=== PATIENT | female | born 1990 | race Caucasian/White ===

== ENCOUNTER 2022-08-02 10:01 | Emergency (ER) | payer OTHER ==
[2022-08-02 10:08] VITALS: RESP 18
--- NOTE | 2022-08-02 10:40 | ED ---
General Adult HPI - General Chief complaint: Neuro Symptoms/Deficit Stated complaint: AMS,Numbness Time Seen by Provider: 08/02/22 10:15 Source: patient, RN notes reviewed, old records reviewed Mode of arrival: EMS Limitations: altered mental status - History of Present Illness Initial comments: This is a 32-year-old female presents emergency department stating that while she was at work she had some tingling on the left side of her tongue and then in her 2 fingers on her left hand and then it spread to her whole hand went up her arm into her neck and lasted about a total of a half an hour she states the tingling on the tongue only lasted for approximately 2 minutes. Patient states there was a sensation of being numb like when you and your arm and it falls asleep. Patient states then that went away and she had some tingling and some pressure will numbness on the right side of her neck. Patient states he then had a right temporal headache which is typical of her migraine headaches. Patient states she has not had symptoms like this previously however she does have a long-standing history of migraines. Currently she does not want anything for the headache. - Related Data Home Medications Medication Instructions Recorded Confirmed No Known Home Medications 08/02/22 08/02/22 Allergies Allergy/AdvReac Type Severity Reaction Status Date / Time No Known Allergies Allergy Verified 08/02/22 10:50 Review of Systems ROS Statement: Those systems with pertinent positive or pertinent negative responses have been documented in the HPI. ROS Other: All systems not noted in ROS Statement are negative. Past Medical History Additional Past Medical History / Comment(s): Genetic mutation, SVT, History of Any Multi-Drug Resistant Organisms: None Reported Past Surgical History: Cholecystectomy Additional Past Surgical History / Comment(s): Left hand surgery Past Psychological History: No Psychological Hx Reported Smoking Status: Never smoker Past Alcohol Use History: Occasional Past Drug Use History: None Reported General Exam - General Exam Comments Initial Comments: GENERAL: Patient is well-developed and well-nourished. Patient is nontoxic and well- hydrated and is in no acute distress. ENT: Neck is soft and supple. No significant lymphadenopathy is noted. Oropharynx is clear. Moist mucous membranes. Neck has full range of motion without eliciting any pain. EYES: The sclera were anicteric and conjunctiva were pink and moist. Extraocular movements were intact and pupils were equal round and reactive to light. Eyelids were unremarkable. PULMONARY: Unlabored respirations. Good breath sounds bilaterally. No audible rales rhonchi or wheezing was noted. CARDIOVASCULAR: There is a regular rate and rhythm without any murmurs gallops or rubs. Femoral pulses are equal bilaterally ABDOMEN: Soft and nontender with normal bowel sounds. No palpable organomegaly was noted. There is no palpable pulsatile mass. SKIN: Skin is clear with no lesions or rashes and otherwise unremarkable. NEUROLOGIC: Patient is alert and oriented x3. Cranial nerves II through XII are grossly intact. Motor and sensory are also intact. Normal speech, volume and content. Symmetrical smile. Patient's NIH is 0 MUSCULOSKELETAL: Normal extremities with adequate strength and full range of motion. No lower e xtremity swelling or edema. No calf tenderness. LYMPHATICS: No significant lymphadenopathy is noted PSYCHIATRIC: Normal psychiatric evaluation. Limitations: altered mental status Course Vital Signs 08/02/22 10:02 Temperature 97.9 F Pulse Rate 88 Respiratory 18 Rate Blood Pressure 159/92 O2 Sat by Pulse 100 Oximetry Medical Decision Making - Medical Decision Making Patient's CT of the brain shows no acute abnormality. I will back in the room to reevaluate the patient she states the headache is gotten worse and now it feels like her classic migraine. Patient was given Toradol Reglan and Benadryl. - Lab Data Result diagrams: 08/02/22 10:51 08/02/22 10:51 Lab Results 08/02/22 08/02/22 Range/Units 10:51 10:51 WBC 6.8 (3.8-10.6) k/uL RBC 4.99 (3.80-5.40) m/uL Hgb 13.7 (11.4-16.0) gm/dL Hct 40.3 (34.0-46.0) % MCV 80.9 (80.0-100.0) fL MCH 27.4 (25.0-35.0) pg MCHC 33.9 (31.0-37.0) g/dL RDW 14.2 (11.5-15.5) % Plt Count 339 (150-450) k/uL MPV 8.1 Neutrophils % 67 % Lymphocytes % 24 % Monocytes % 5 % Eosinophils % 1 % Basophils % 0 % Neutrophils # 4.6 (1.3-7.7) k/uL Lymphocytes # 1.6 (1.0-4.8) k/uL Monocytes # 0.3 (0-1.0) k/uL Eosinophils # 0.1 (0-0.7) k/uL Basophils # 0.0 (0-0.2) k/uL Sodium 139 (137-145) mmol/L Potassium 4.2 (3.5-5.1) mmol/L Chloride 105 (98-107) mmol/L Carbon Dioxide 22 (22-30) mmol/L Anion Gap 12 mmol/L BUN 8 (7-17) mg/dL Creatinine 0.77 (0.52-1.04) mg/dL Est GFR (CKD-EPI)AfAm >90 (>60 ml/min/1.73 sqM) Est GFR (CKD-EPI)NonAf >90 (>60 ml/min/1.73 sqM) Glucose 93 (74-99) mg/dL Calcium 8.9 (8.4-10.2) mg/dL Magnesium 2.0 (1.6-2.3) mg/dL Total Bilirubin 0.4 (0.2-1.3) mg/dL AST 23 (14-36) U/L ALT 18 (4-34) U/L Alkaline Phosphatase 51 (38-126) U/L Total Protein 7.3 (6.3-8.2) g/dL Albumin 4.3 (3.5-5.0) g/dL Disposition Clinical Impression: Migraine headache with aura Disposition: HOME SELF-CARE Instructions (If sedation given, give patient instructions): Migraine Headache (ED) Is patient prescribed a controlled substance at d/c from ED?: No Referrals: None,Stated [Primary Care Provider] - 1-2 days Time of Disposition: 11:25
--- NOTE | 2022-08-02 10:56 | CT ---
EXAMINATION TYPE: CT brain wo con DATE OF EXAM: 08/02/2022 COMPARISON: None. HISTORY: Numbness, Headache CT DLP: 1141.4 mGycm. Automated Exposure Control for Dose Reduction was Utilized. TECHNIQUE: CT scan of the head is performed without contrast. FINDINGS: There is no acute intracranial hemorrhage, mass effect, or midline shift identified. The ventricles and sulci are within normal limits in size. The globes are intact and the visualized sin uses are clear. Scattered calcified nodules throughout the soft tissue of the bilateral scalp are dimas reciated. IMPRESSION: No acute intracranial hemorrhage, mass effect, or midline shift is seen.
[2022-08-02 11:03] LABS: Basophils % (A) 0 %; Eosinophils # (A) 0.1 k/uL (0-0.7); Eosinophils % (A) 1 %; HCT 40.3 % (34.0-46.0); HGB 13.7 gm/dL (11.4-16.0); Lymphocytes # (A) 1.6 k/uL (1.0-4.8); Lymphocytes % (A) 24 %; MCH 27.4 pg (25.0-35.0); MCHC 33.9 g/dL (31.0-37.0); MCV 80.9 fL (80.0-100.0); Mean Platelet Volume 8.1; Monocytes # (A) 0.3 k/uL (0-1.0); Monocytes % (A) 5 %; Neutrophils # (A) 4.6 k/uL (1.3-7.7); Neutrophils % (A) 67 %; Platelet Count 339 k/uL (150-450); RBC 4.99 m/uL (3.80-5.40); RDW 14.2 % (11.5-15.5); WBC 6.8 k/uL (3.8-10.6)
[2022-08-02 11:10] LABS: ALT 18 U/L (4-34); AST 23 U/L (14-36); African American GFR (CKD) >90 (>60 ml/min/1.73 sqM); Albumin 4.3 g/dL (3.5-5.0); Alkaline Phosphatase 51 U/L (38-126); Anion Gap 12 mmol/L; Blood Urea Nitrogen 8 mg/dL (7-17); Calcium 8.9 mg/dL (8.4-10.2); Carbon Dioxide 22 mmol/L (22-30); Chloride 105 mmol/L (98-107); Glucose 93 mg/dL (74-99); Non-African American GFR(CKD) >90 (>60 ml/min/1.73 sqM); Potassium 4.2 mmol/L (3.5-5.1); Sodium 139 mmol/L (137-145); Total Bilirubin 0.4 mg/dL (0.2-1.3); Total Protein 7.3 g/dL (6.3-8.2)
[2022-08-02] MEDS ORDERED: diphenhydrAMINE 50 MG/ML 1 ML VIAL IVP STA (11:28)
[2022-08-02] MEDS ORDERED: KETOROLAC 15 MG/ML 1 ML VIAL IVP STA (11:28)
[2022-08-02] MEDS ORDERED: METOCLOPRAMIDE 5 MG/ML 2 ML VIAL IVP STA (11:29)
[2022-08-02 15:15] VITALS: BP 135/67; PULSE 84; TEMP 98
== END 2022-08-02 12:30 | disposition home or self-care (01) ==
LOC: EC 10:01
DX: R41.82 Altered mental status, unspecified (principal); R20.2 Paresthesia of skin; G43.109 Migraine with aura, not intractable, without status migrainosus
CPT/HCPCS: 36415; 80053; 83735; 85025; 70450; 99284; 96374; 96375 ×2; J1200; J2765; J1885

== ENCOUNTER → 2023-06-06 | Outpatient (CLI) | payer OTHER ==
--- NOTE | 2023-06-06 16:26 | P.SLEEP ---
History of Present Illness DATE: 06/06/2023 CONSULTATION/NEW PATIENT EVALUATION HISTORY OF PRESENT ILLNESS/SLEEP-WAKE EVALUATION: 33-year-old lady had been ev aluated in the sleep center for possible obstructive sleep apnea hypopnea syndrome. SLEEP SCHEDULE: Usually sleep schedule from 11 PM to 7 AM 7 days a week. FALLING ASLEEP: Sometimes patient has problems with falling asleep, highest TV set and bedroom. DURING SLEEP: Patient snores and wakes up from sleep up to 5 times with episodes of nocturia. Positive history of dry mouth No history of hypnogogical hallucinations, sleep paralysis, or cataplexy. DURING THE DAY/WAKE STATE: In the morning patient wake up tired. Lincoln sleepiness scale is 9 which is borderline. Patient may take nap around 2:30 PM. PAST MEDICAL HISTORY: Supraventricular tachycardia, acid reflux, hypothyroidism, episodes of tonsillitis. PAST SURGICAL HISTORY: Cholecystectomy. MEDICATIONS: None at the present time. SOCIAL HISTORY: Negative for smoking, alcohol consumption occasional. FAMILY HISTORY: Sleep apnea, restless legs. REVIEW OF SYSTEMS: Snoring, multiple awakenings from sleep. No fevers. No double vision. No recent chest pain. No shortness of breath. No abdominal pain. No bleeding episodes. No blood in urine. No seizure episodes. PHYSICAL EXAMINATION: GENERAL: A pleasant patient without any distress. VITAL SIGNS: BP 132/84, HR 77, RR 12, weight 324.2 pounds, height 5 foot 8 inches, body mass index 49.2. HEENT: PERRLA, EOMI. Evaluation of oropharynx showed tongue protrudes midline, low position of soft palate Mallampati 2, hypertrophy of tonsils. NECK: Supple. No JVD. Thyroid is not palpable. 17 inches in circumference. LUNGS: Clear to percussion and to auscultation. Good air exchange. No wheezing or rhonchi. HEART: S1, S2 regular. No murmurs, gallops or rubs. ABDOMEN: Soft and nontender. Bowel sounds are present. No organomegaly appreciated. EXTREMITIES: No clubbing or cyanosis. GLASS CURVATURE GAUGER: Awake, alert, and oriented x3. Cranial nerves 2 to 7 intact. There is no fasciculation or atrophy noted. No focal deficits observed. ASSESSMENT: 1. Snoring, multiple awakenings from sleep, small oropharyngeal airspace secondary to extremely large tonsils and low position of soft palate, wide neck 17 inches in circumference. Obstructive sleep apnea hypopnea syndrome. 2. History of tonsillitis, hypertrophy of tonsils. 3. History of supraventricular tachycardia. 4. Acid reflux. 5 hypothyroidism. 6 . Obesity, BMI 49.2. 7. Status post cholecystectomy. PLAN: 1. Polysomnography for evaluation of patient's breathing during sleep. 2. CPAP/BiPAP titration if sleep study confirms obstructive sleep apnea- hypopnea syndrome. 3. Preferable position during sleep on the side. 4. No driving if patient feels any sleepiness. Patient is aware of civil and criminal liability for unsafe driving. 5. Sleep hygiene with regular sleep time for at least 7.5-8 hours. 6. Watching and losing weight. 7. Evaluation by ear nose and throat physician. Thank you very much for referring this patient for consultation. Sincerely, Peng Da Silva MD, PhD, FAASM. Diplomat of [place] [employer], Sleep Medicine Board by [place] [facility] [place] Past Medical History Additional Past Medical History / Comment(s): Genetic mutation, SVT, History of Any Multi-Drug Resistant Organisms: None Reported Past Surgical History: Cholecystectomy Additional Past Surgical History / Comment(s): Left hand surgery Past Psychological History: No Psychological Hx Reported Smoking Status: Never smoker Past Alcohol Use History: Occasional Past Drug Use History: None Reported Medications and Allergies Home Medications Medication Instructions Recorded Confirmed Type No Known Home Medications 08/02/22 08/02/22 History Allergies Allergy/AdvReac Type Severity Reaction Status Date / Time No Known Allergies Allergy Verified 08/02/22 10:50 Sleep Note - Sleep Note Sleep Note: Temperature: Pulse Rate: Respiratory Rate: Blood Pressure: SpO2: Height: Weight: BMI: Neck Circumference:
== END ==
LOC: 3 N SLEEP 15:13
PROVIDERS: ATTEND Internal Medicine
DX: G47.33 Obstructive sleep apnea (adult) (pediatric) (principal); K21.9 Gastro-esophageal reflux disease without esophagitis; E03.9 Hypothyroidism, unspecified; E66.9 Obesity, unspecified; Z68.42 Body mass index [BMI] 45.0-49.9, adult; Z90.49 Acquired absence of other specified parts of digestive tract; Z87.09 Personal history of other diseases of the respiratory system; Z86.79 Personal history of other diseases of the circulatory system
CPT/HCPCS: 99211

== ENCOUNTER 2023-06-19 19:36 | Outpatient (CLI) | payer OTHER ==
--- NOTE | 2023-06-20 15:51 | P.PCN ---
Description of Procedure: POLYSOMNOGRAPHY REPORT PROCEDURE(S)/DATE(S): Polysomnography 06/19/2023 CLINICAL: Patient has been seen in the sleep center for evaluation of obstructive sleep apnea-hypopnea syndrome. Please see my consultation. Sleep study has been done for evaluation of patient breathing during the sleep. PROCEDURE: The standard montage for clinical polysomnography included the electroencephalogram, the electrooculogram, the mentalis surface electromyography and Lead II cardiography. The respiratory battery consisted of measurements of nasal/buccal air flow, pressure transducer measurements from nose, thoracic and/or abdominal effort and intercostal surface electromyography. Video monitoring has been done to check for any parasomnia events. Nocturnal oxyhemoglobin saturations were obtained by finger oximetry. Step-house titration with positive airway pressure was utilized to control the respiratory events, if necessary. RESULTS: During the diagnostic sleep study sleep efficiency was decreased to 78.4 %. Latency to sleep onset was borderline 30.0 min. Sleep architecture showed stage NI was normal 6.7 %, Delta sleep was normal 12.2 %, REM sleep was normal 20.3 %. Respiratory channel showed 9 obstructive apneas, 0 mixed apneas, 2 central apneas, 9 hypopneas with lowest oxygen level 89 %. Total apnea hypopnea index was 3.4. Heart rate was in the range between 75 and 88, average 81 by computer calculation. EMG showed 10.5 periodic limb movements per hour with to 1.4 micro-arousals per hour. IMPRESSIONS: 1. No significant respiratory abnormalities have been documented during the sleep study. 2. Very minimal periodic limb movements have been documented, at normal range by today's criteria. 3. Loud snoring have been documented during the sleep study. Please see other impressions from consultation PLAN: 1. Losing weight program. 2. Sleep hygiene with regular time in bed for at least 7-1/2 hours. 3. No driving if feeling sleepiness. 4. Please check iron profile including ferritin level. Low level of iron may increase the risk for periodic limb movements. 5. Patient may consider evaluation by ear nose and throat physician for treatment of snoring. Thank you very much for allowing me to participate in the management of your patient. Sincerely, Peng Da Silva MD, PhD, FAASM. Diplomat of [place], Sleep Medicine Board by [place] [facility] [place]
== END 2023-06-20 05:42 | disposition home or self-care (01) ==
LOC: 3 N SLEEP 19:36
PROVIDERS: ATTEND Internal Medicine
DX: G47.61 Periodic limb movement disorder (principal); R06.83 Snoring
CPT/HCPCS: 95810

== ENCOUNTER → 2024-07-20 | Outpatient (CLI) | payer OTHER ==
--- NOTE | 2024-07-21 09:19 | MR ---
EXAMINATION TYPE: MR brain wo con DATE OF EXAM: 07/20/2024 8:03 PM CLINICAL INDICATION: Female, 34 years old with history of G43.409, R51.9, R20.0, R47.81, R45.01, R68. 89; PHH, Hemiplegic migraines, episodes are on both sides at different times, facial numbness during migraines, Pt refused contrast COMPARISON: 08/02/2022. TECHNIQUE: Multi planar, multi sequence imaging was performed through the brain including: T1, T2, In version recovery, Diffusion weighted imaging, and gradient echo imaging. No gadolinium was given. FINDINGS: The chamorro-white junctions, ventricular system, basal cisterns appear unremarkable. Midline structures show no abnormality. Diffusion-weighted imaging shows no evidence of restricted diffusion. The suscep tibility weighted images do not reveal any evidence for micro-hemorrhage. The scattered probable seba ceous cysts in the scalp. The bone marrow signal is within normal limits. Paranasal sinuses and mastoid air cells: No significant paranasal sinus disease. Visualized orbits: Orbital contents are intact. IMPRESSION: No evidence of intracranial mass or acute/subacute infarct. [facility], , 07/21/2024 9:16 AM
== END | disposition home or self-care (01) ==
LOC: RADMRIMAIN 19:40
PROVIDERS: ATTEND Family Medicine
DX: G43.409 Hemiplegic migraine, not intractable, without status migrainosus (principal); R20.0 Anesthesia of skin; R47.81 Slurred speech; R47.01 Aphasia; R68.89 Other general symptoms and signs
CPT/HCPCS: 70551